=== PATIENT | female | born 1970 | race Caucasian/White ===

== ENCOUNTER 2024-01-06 14:10 | Emergency (ER) | payer OTHER, SELFPAY ==
--- NOTE | ~2024-01-06 | CT_ITS ---
EXAMINATION: CT ABDOMEN AND PELVIS WITHOUT CONTRAST CLINICAL INFORMATION: Left lower quadrant pain, flank pain, diarrhea, nausea COMPARISON: None available. TECHNIQUE: Multidetector volumetric imaging was performed from the superior aspect of the liver through the pubic symphysis. Sagittal and coronal reformatted images were obtained on the technologist's workstation. This CT examination was performed using dose optimization techniques as appropriate, variously including the following: *Automated exposure control *Adjustment of mA and/or kV according to patient size (this includes techniques or standardized protocols for targeted exams where dose is matched to indication/reason for exam; i.e. extremities or head) *Use of iterative reconstruction technique DLP: 647 mGy-cm FINDINGS: LUNG BASES: Unremarkable. ABDOMINAL AND PELVIC WALL: Unremarkable. LIVER AND BILIARY TREE: Hypoattenuating hepatic parenchyma compatible with hepatic steatosis. Liver is enlarged measuring 24.6 cm in span. GALLBLADDER: Unremarkable. PANCREAS: Unremarkable. SPLEEN: Unremarkable. ADRENAL GLANDS: Unremarkable. KIDNEYS AND URETERS: Unremarkable. GASTROINTESTINAL TRACT: Colonic diverticulosis with focal short segment wall thickening, inflammatory fat stranding and fascial thickening involving the descending colon. No perforation or abscess. Appendix is not identified however there are no findings to suggest appendicitis. VASCULAR: Unremarkable. LYMPH NODES/PERITONEUM: No lymphadenopathy. FREE FLUID: None. BLADDER: Unremarkable. PELVIC VISCERA: Unremarkable. OSSEOUS STRUCTURES: Unremarkable. CT/CT abdomen pelvis wo IV con IMPRESSION: 1. Colonic diverticulosis with focal short segment wall thickening, inflammatory fat stranding and fascial thickening involving the descending colon, compatible with acute diverticulitis. No perforation or abscess. 2. Hepatomegaly and hepatic steatosis.
[2024-01-06 14:32] VITALS: BP 129/89; PULSE 92; RESP 20; TEMP 37; O2SAT 97; BMI 31.0
--- NOTE | 2024-01-06 14:42 | ECG_ITS ---
Test Reason : ABD PAIN Blood Pressure : / mmHG Vent. Rate : 078 BPM Atrial Rate : 078 BPM P-R Int : 168 ms QRS Dur : 090 ms QT Int : 406 ms P-R-T Axes : 039 -03 056 degrees QTc Int : 462 ms Normal sinus rhythm Normal ECG No previous ECGs available Referred By: Anmol Mccollum Electronically Signed By:Shahram Nicholas
--- NOTE | 2024-01-06 14:44 | ED_ITS ---
HPI - General Adult General Chief complaint: Abdominal Pain Stated complaint: L flank pain Time Seen by Provider: 01/06/24 14:50 Source: patient Mode of arrival: ambulatory Limitations: no limitations History of Present Illness HPI narrative: Patient is a 53-year-old female with past medical history of primary immune deficiency, asthma, hypothyroidism, diverticulitis who presents emergency department for evaluation. She is visiting the area from [place]. She reports that yesterday she began developing left lateral abdominal pain radiating to the lower quadrant and a few episodes of diarrhea. She thought this was a bout of diverticulitis, she contacted her primary care provider who sent in a prescription for Augmentin to a local pharmacy. She has taken a total of 3 doses. Today she had mild diarrhea but she also has not been eating much. However she felt her pain was worsening, radiating to the mid/upper abdomen. She denies chest pain, shortness of breath, lower extremity pain redness or swelling. She does admit that she recently traveled by plane from [place]. Denies any personal history of DVT/PE/malignancy Related Data Previous Rx's ?Medication ?Instructions ?Recorded ondansetron 4 mg disintegrating 4 mg PO Q8H PRN nausea and 01/06/24 tablet vomiting #20 tabs Allergies Allergy/AdvReac Type Severity Reaction Status Date / Time acetaminophen [From Vicodin] Allergy Anaphylaxis Verified 01/06/24 14:38 ciprofloxacin [From Cipro] Allergy Anaphylaxis Verified 01/06/24 14:38 doxycycline Allergy Unknown Verified 01/06/24 14:38 hydrocodone [From Vicodin] Allergy Anaphylaxis Verified 01/06/24 14:38 iodine Allergy Anaphylaxis Verified 01/06/24 14:38 metronidazole [From Flagyl] Allergy Unknown Verified 01/06/24 14:38 sulfamethoxazole Allergy Anaphylaxis Verified 01/06/24 14:38 [From Septra] trimethoprim [From Septra] Allergy Anaphylaxis Verified 01/06/24 14:38 Review of Systems 2 Review of Systems: Yes all other systems are reviewed and are negative PMFSH Past Medical History Attestation statement: The following information was validated with the patient. Source: old records reviewed Medical History (Updated 01/06/24 @ 17:43 by Dale Carrillo) Hypothyroidism Primary immune deficiency disorder Surgical History (Updated 01/06/24 @ 15:27 by Leslie Collins RN) Hx of breast reduction, elective Social History Social History Alcohol intake: current Alcohol intake frequency: holidays/special occasions only Smoked in Last 30 Days: No Use of substances other than those prescribed or required for medical reasons: No Advance Directives: No Advance Directives Information Provided: No Do you have a plan to hurt others: No Plan Patient : No Physical Exam ED Vital Signs: Vital Signs - 24 hr 01/06/24 14:32 01/06/24 14:52 01/06/24 14:58 Temperature 98.6 F 98.3 F Pulse Rate 92 89 Respiratory Rate 20 16 Blood Pressure 129/89 141/84 H Pulse Oximetry 97 98 Oxygen Delivery Method Room Air Room Air 01/06/24 15:41 Temperature 98.2 F Pulse Rate 81 Respiratory Rate 16 Blood Pressure 112/75 Pulse Oximetry 97 Oxygen Delivery Method Room Air BMI result Body Mass Index 31.0 Appearance: Alert.?Oriented to person, place and time. No acute distress.?Normal affect. Eyes: Pupils equal, round and reactive to light.? ENT: Pharynx normal.?? Neck: Normal inspection.? Neck supple.?? CVS: Heart sounds normal. Normal heart rate and rhythm.? Pulses normal.?? Respiratory: No respiratory distress.? Lung sounds clear to auscultation bilaterally?? Abdomen: Soft left-sided abdominal pain upper and lower, left lateral abdomen. Normoactive bowel sounds. No pulsatile mass.?? Skin: Skin warm and dry.? Normal skin color.? Extremities: No lower extremity edema.? No calf ttp? Neuro: Moves all extremities spontaneously. Sensation intact bilaterally. CN II- XII intact. No focal neuro deficits. Ambulates with normal steady gait. Course Course Course Narrative: RME: DOne by Win Mccollum. 53-year-old female presents to ED for left upper flank abdominal pain. Patient has history of diverticulitis and thought she was having a flare-up so she called her primary care who gave her Augmentin. Patient took 1st dose yesterday. Patient states mild diarrhea. Patient states no left lower quadrant tenderness on palpation. Patient denies any chest pain or shortness of breath. Patient recently traveled from [place] by plane. On exam negative for leg swelling, calf pain, pitting edema. Negative for left lower quadrant pain on palpation. Positive for left upper quadrant pain. EKG labs troponin ordered. Reevaluation(s) Reevaluation #1: Signed out to my colleague, Aj ELDER pending CT abdomen and pelvis and re- evaluation Reevaluation #2: Patient's CT scan shows acute diverticulitis without complication. The patient is already on Augmentin that started 1-1/2 days ago, she will continue this regimen Time: 17:42 Medications Administered Discontinued Medications Generic Name Dose Route Start Last Admin Trade Name Freq PRN Reason Stop Dose Admin Sodium Chloride 1,000 mls @ 999 mls/hr 01/06/24 15:15 01/06/24 16:41 Ns IV 01/06/24 16:15 Infused .Q1H1M JAYE Infusion Ondansetron HCl 4 mg 01/06/24 15:05 01/06/24 15:20 Ondansetron Hcl 4 Mg/2 Ml Vial IVPUSH 01/06/24 15:06 Not Given ONCE ONE Ondansetron HCl 4 mg 01/06/24 17:49 01/06/24 17:52 Ondansetron Hcl 4 Mg/2 Ml Vial IVPUSH 01/06/24 17:50 4 mg ONCE ONE Administration Medical Decision Making Medical Decision Making [facility] Narrative: Patient is a 53-year-old female with past medical history of primary immune deficiency hypogammaglobulinemia, asthma, hypothyroidism, diverticulitis presenting for left abdominal pain, nausea, diarrhea as per HPI. Overall she appears well, nontoxic, afebrile and is without tachycardia. She declines pain control at this time. She was offered Zofran for nausea which she also declines. Will obtain CBC to evaluate for leukocytosis/ anemia, CMP and lipase to evaluate for abnormal electrolytes /abnormal renal function/ abnormal hepatic/biliary function, EKG and troponin to evaluate for ischemia/ACS. CT of the abdomen pelvis to evaluate for diverticulitis he possible complication, ureteral calculi, hydronephrosis, pyelonephritis, Urinalysis. Wells negative, unlikely pulmonary embolism, no respiratory distress. Differential Diagnosis Differential Diagnoses: The differential diagnosis associated with the presentation includes (See narrative above) Admission/Observation Consideration of admission/observation: Escalation of care including admission/observation considered Lab Data [facility] Lab Attestation statement: I reviewed the patient's lab results. CBC reveals a mild leukocytosis, no anemia, thrombocytopenia. No electrolyte derangement. No HIRAL. Mildly elevated LFT please, who be secondary to hepatic steatosis, suspect less likely to be etiology for left-sided pain. Lipase is within normal range. Urinalysis with leukocyte esterase but no urine bacteria, do not suspect UTI. 01/06/24 15:03 01/06/24 15:03 Labs: Lab Results 01/06/24 Range/Units 15:03 WBC 11.1 H (4.8-10.8) X10*3/uL RBC 4.68 (4.20-5.50) X10*6/uL Hgb 13.8 (12.0-16.0) g/dl Hct 39.5 (37.0-47.0) % MCV 84.4 (80.0-98.0) fL MCH 29.5 (27.0-33.0) pg MCHC 34.9 (31.0-35.0) g/dl RDW 13.6 (11.0-16.0) % Plt Count 313 (160-400) X10*3/uL MPV 10.2 (9.4-12.3) fL Immature Gran % (Auto) 0.4 (0.0-0.4) % Neut % (Auto) 66.8 (45-73) % Lymph % (Auto) 26.4 (20-40) % Mercer % (Auto) 5.2 (2-11) % Eos % (Auto) 0.8 (0-4) % Baso % (Auto) 0.4 (0-2) % Lymph # (Auto) 2.9 (1.2-4.9) X10*3/uL Mercer # (Auto) 0.6 (0.1-1.2) X10*3/uL Eos # (Auto) 0.1 (0.0-0.4) X10*3/uL Baso # (Auto) 0.0 (0.0-0.2) X10*3/uL Abs Immat Gran (auto) 0.05 H (0.00-0.03) X10*3/uL Absolute Neuts (auto) 7.4 (2.0-8.3) x10*3/uL Absolute Nucleated RBC 0.000 (0.0-0.012) X10*3/uL Nucleated RBC % (auto) 0.0 (0.0-0.2) /100WBC PT 12.0 (11.1-13.3) SEC INR 1.0 (0.9-1.1) APTT 30.3 (26.0-36.8) SEC Sodium 140 (135-145) mmol/L Potassium 3.8 (3.3-5.1) mmol/L Chloride 106 (96-108) mmol/L Carbon Dioxide 23 (22-29) mmol/L Anion Gap 15 (12-20) BUN 9 (9-16) mg/dL Creatinine 0.71 (0.5-1.4) mg/dL Estim Creat Clear Calc 100.6 Estimated GFR > 60 Random Glucose 129 H (60-115) mg/dL Calcium 10.0 (8.4-10.2) mg/dL Total Bilirubin 1.1 H (0.0-1.0) mg/dL AST 35 H (5-31) U/L ALT 59 H (0-31) U/L Alkaline Phosphatase 123 H (39-117) U/L Troponin I High Sens < 2.7 (<3.5-17.0) ng/L Total Protein 7.7 (6.5-8.0) g/dL Albumin 4.6 (3.5-5.0) g/dL Lipase 22 (8-78) U/L Beta HCG, Quant < 2 mIU/mL Urine Color Yellow Urine Appearance Clear Urine pH 6.0 (5.0-9.0) Ur Specific [place] 1.020 (1.005-1.025) Urine Protein Negative (Neg-Trace) mg/dL Urine Glucose (UA) Negative (Negative) mg/dL Urine Ketones Trace (Negative) mg/dL Urine Blood Negative (Negative) Urine Nitrite Negative (Negative) Ur Leukocyte Esterase Small (1+) H (Negative) Urine RBC 0-2 (0-2) /HPF Urine WBC 11-20 H (0-5) /HPF Ur Squamous Epith Cells 3-5 (0-2) /HPF Urine Bacteria None Seen (None Seen) Hyaline Casts 0-2 (0-2) /LPF Independent Interpretation I performed an independent interpretation of an: EKG Interpretation: Rate: 78 Rhythm:? Normal sinus rhythm Normal P waves.? Normal HOMER.?? Normal QRS complex.?? ST T wave :??No ST elevation, no ST depression qTC: 462 prior studies:? None available for review The study has been interpreted contemporaneously by me. Radiology Impression Discussion of test interpretation with radiology: I have reviewed the radiologist's reading. Radiologist Impression: CT/CT abdomen pelvis wo IV con IMPRESSION: 1. Colonic diverticulosis with focal short segment wall thickening, inflammatory fat stranding and fascial thickening involving the descending colon, compatible with acute diverticulitis. No perforation or abscess. 2. Hepatomegaly and hepatic steatosis. Independent Historian Clinical information obtained from an independent historian. History obtained from or confirmed by: Other (Daughter) Discharge Plan Discharge Clinical Impression: Abdominal pain, Diverticulitis Patient Disposition: Home, Self-Care Instructions: Diverticulitis (ED), Diverticulitis Diet (ED) Additional Instructions: Your CT scan shows uncomplicated diverticulitis, continue the Augmentin. I recommend a liquid diet for the next 2 days while your pain improves Follow-up with your primary doctor, return for new or worsening symptoms Prescriptions: New ondansetron 4 mg tablet,disintegrating 4 mg PO Q8H PRN (Reason: nausea and vomiting) Qty: 20 0RF Print Language: Ukrainian
[2024-01-06 14:52] VITALS: BP 141/84; PULSE 89; RESP 16; O2SAT 98
[2024-01-06 14:58] VITALS: TEMP 36.8
[2024-01-06 15:12] LABS: Basophils Percent Auto 0.4 % (0-2); Eosinophils Absolute Auto 0.1 X10*3/uL (0.0-0.4); Eosinophils Percent Auto 0.8 % (0-4); Hematocrit 39.5 % (37.0-47.0); Hemoglobin 13.8 g/dl (12.0-16.0); Imm Gran Abs Auto 0.05 X10*3/uL (0.00-0.03); Imm Gran Pct Auto 0.4 % (0.0-0.4); Lymphocytes Absolute Auto 2.9 X10*3/uL (1.2-4.9); Lymphocytes Percent Auto 26.4 % (20-40); MANUAL DIFF FLAG NO; Mean Corpuscular HGB Conc 34.9 g/dl (31.0-35.0); Mean Corpuscular Hemoglobin 29.5 pg (27.0-33.0); Mean Corpuscular Volume 84.4 fL (80.0-98.0); Mean Platelet Volume 10.2 fL (9.4-12.3); Monocytes Absolute Auto 0.6 X10*3/uL (0.1-1.2); Monocytes Percent Auto 5.2 % (2-11); Neutrophils Absolute Auto 7.4 x10*3/uL (2.0-8.3); Neutrophils Percent Auto 66.8 % (45-73); Platelet Count 313 X10*3/uL (160-400); Red Blood Count 4.68 X10*6/uL (4.20-5.50); Red Cell Distribution Width 13.6 % (11.0-16.0); White Blood Count 11.1 X10*3/uL (4.8-10.8)
[2024-01-06 15:13] LABS: Appearance Urine Clear; Color Urine Yellow; Glucose Urine UA Negative (Negative); Leukocyte Esterase Urine Small (1+) (Negative); Nitrite Urine Negative (Negative); UMIC TRIGGER UACC YES; Urine Blood Negative (Negative); Urine Ketones Trace mg/dL (Negative); Urine Protein Negative (Neg-Trace)
[2024-01-06 15:19] LABS: Bacteria Urine None Seen (None Seen); Hyaline Casts Urine 0-2 /LPF (0-2); RBC Urine 0-2 /HPF (0-2); UACC Culture Trigger YES
[2024-01-06] MEDS: 0.9 % Sodium Chloride 1,000 ML 999 ML IV (15:19)
[2024-01-06 15:21] LABS: Partial Thromboplastin Time 30.3 SEC (26.0-36.8)
[2024-01-06 15:41] VITALS: BP 112/75; PULSE 81; RESP 16; TEMP 36.8; O2SAT 97
--- NOTE | 2024-01-06 15:42 | MHC.EDTECH ---
This pct assumed care of patient at 1500 ,vitals taken and ekg done and was read by Provider ,Call lozano within Patient reach .
[2024-01-06 15:43] LABS: Alanine Aminotransferase 59 U/L (0-31); Albumin Level 4.6 g/dL (3.5-5.0); Alkaline Phosphatase 123 U/L (39-117); Anion Gap 15 (12-20); Aspartate Amino Transferase 35 U/L (5-31); Bilirubin Total 1.1 mg/dL (0.0-1.0); Blood Urea Nitrogen 9 mg/dL (9-16); Carbon Dioxide 23 mmol/L (22-29); Chloride 106 mmol/L (96-108); Creatinine Clr Calc Pharmacy 100.6; Estimated Glomerular Filt Rate > 60; Glucose Random 129 mg/dL (60-115); Lipase 22 U/L (8-78); Potassium 3.8 mmol/L (3.3-5.1); Sodium 140 mmol/L (135-145); Total Protein 7.7 g/dL (6.5-8.0)
[2024-01-06 15:48] LABS: HCG Quantitative < 2 mIU/mL; Troponin-I High Sensitivity < 2.7 ng/L (<3.5-17.0)
--- OUTSIDE RECORDS SUMMARY | 2024-01-06 15:57 | XMS_ITS | Patient Health Record ---
Author Organization [facility] Address [address] [place] [address] Care Team Providers Care Rn Mds Name Role Phone [facility] Primary Care Provider Unavail able JORGITO RODRIGUEZ M.D., YESENIA Vogt JORGITO RODRIGUEZ M.D., YESENIA Unavailable Unavaila ble Allergies Allergen (clinical drug ingredient) Drug/Non Drug Allergy documented on EMR Reaction Allergy Type Onset Date Status sulfamethoxazole / trimethoprim Bactrim DS Unknown Drug Allergy Active meperidine Demerol hives Drug Allergy Active acetaminophen / hydrocodone HYDROcodone-Acetami nophen anaphylaxis Drug Allergy Active Iodine anaphylaxis Drug Allergy Activ e Levaquin dizziness Drug Allergy Active ceftriaxone cefTRIAXone rash Drug Allergy Act june cefuroxime Cefuroxime rash Drug Allergy Activ e moxifloxacin Moxifloxacin hives Drug Allergy A ctive Reason For Referral No Information Medications Medication SIG (Take, Route, Frequency, Duration) Notes Start Date End Date Status Tylenol 325 MG 1 cap(s) orally 3 times a day prn Active Magnesium Gluconate 250 MG 1 tab(s) orally 2 times a day for 30 day(s) Active Melatonin 2.5 MG 1 cap(s) orally once a day (at bedtime) Active Vitamin D3 10 MCG (400 UNIT) as directed orally once a day for 30 day(s) Active Levalbuterol HCl 0.31 MG/3 ML 3 ML BY NEBULIZER 3 TIMES A DAY for 30 DAY(S) PRN Active Levothyroxine Sodium 125 MCG 1 tab(s) orally once a day for 30 day(s) Active Singulair 10 MG 1 tab(s) orally once a day for 30 day(s) Active Hizentra 20% DIRECTED SUBCUTANEOUSLY ONCE A WEEK for 4 WEEK(S) *Please review and pick correct strength-formula tion from [employer] options. If intended option is not shown, discontinue and re-order from Quick Search* Active Pascale 5 MG 1 TAB(S) ORALLY ONCE A DAY PRN Active clonazePAM 1 MG 1 tab(s) orally 3 times a day for 30 day(s) PRN Active Ryaltris 665-25 MCG/ACT 2 puffs in each nostril Nasally Twice a day Not-Taking L-Theanine Active Budesonide 1 MG/2ML 2 mL by nebulizer once a day for 30 day(s) Active NexIUM 40 MG 1 cap(s) orally once a day for 30 day(s) Active Zinc *Please review and pick correct strength-formula tion from [employer] options. If intended option is not shown, discontinue and re-order from Quick Search* Active Social History Tobacco Use: Social History Observation Description Date Details (start date - stop date) Former Smoker NA - NA Tobacco Use- Question Answer Notes Patient is a Former Smoker Time since last smoked > 10 years Problems Problem Type SNOMED Code ICD Code Onset Dates Problem Status W/U Status Risk Notes Problem Allergic rhinitis caused by pollen (17360954) Allergic rhinitis due to pollen (J30.1) Active confirmed Problem Dysphagia (59519744) Dysphagia (R13.10) Active confirmed Problem Gastric reflux (491926863) Gastric reflux (K21.9) Active confirmed Problem [id number] Mild reactive airways disease, unspecified whether persistent (J45.909) Active confirmed Vital Signs Temperature 97.1 degrees Fahrenheit 02/14/2023 Blood pressure diastolic 82 mm Hg 02/14/2023 Weight-kg 84.37 kg 02/14/2023 Height 66 in 02/14/2023 Blood pressure systolic 124 mm Hg 02/14/2023 Weight 186 lbs 02/14/2023 BMI 30.02 02/14/2023 Encounters Encounter Location Date Provider Diagnosis [facility] [address] [facility] [place] [address] [place] [address] 02/14/2023 YESENIA BULL III Allergic rhinitis due to pollen J30.1 and Mild reactive airways disease, unspecified whether persistent J45.909 Assessments Encounter Date Diagnosis (ICD Code) Assessment Notes Treatment Notes Treatment Clinical Notes 02/14/2023 Allergic rhinitis due to pollen (ICD-10 - J30.1) Continue meds 02/14/2023 Mild reactive airways disease, unspecified whether persistent (ICD-10 - J45.909) No thrush ok to resume steroids Plan Of Treatment No Information Insurance Providers Payer Name Payer Address Payer Phone Subscriber Number Group Number Insured Name Patient Relationship to Insured Coverage Start Date Coverage End Date [employer] [address] [place] [address] [id number] LENIN DORSEY Self - patient is the insured Medical (General) History Medical History History ICD Code Esophageal reflux eczema asthma Primary Immunodeficiency syndrome Surgical History Surgery Date(Month/Year)
--- OUTSIDE RECORDS SUMMARY | 2024-01-06 15:57 | XMS_ITS ---
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 Name Role Phone [facility] SYLVESTER [facility] Primary Care Provider Unavail able JORGITO RODRIGUEZ M.D., YESENIA Unavailable JORGITO RODRIGUEZ M.D., YESENIA Unavailable Unavaila ble [...] moxifloxacin Moxifloxacin hives Drug Allergy A ctive REASON FOR VISIT Difficulty breathing Medications Medication SIG (Take, Route, Frequency, Duration) Notes Start Date End Date Status Magnesium Gluconate 250 MG 1 tab(s) orally 2 times a day for 30 day(s) Active Vitamin D3 10 MCG (400 UNIT) as directed orally once a day for 30 day(s) Active Levothyroxine Sodium 125 MCG 1 tab(s) orally once a day for 30 day(s) Active Singulair 10 MG 1 tab(s) orally once a day for 30 day(s) Active Zinc *Please review and pick correct strength-formula tion from [employer] options. If intended option is not shown, discontinue and re-order from Quick Search* Active Tylenol 325 MG 1 cap(s) orally 3 times a day prn Active Pascale 5 MG 1 TAB(S) ORALLY ONCE A DAY PRN Active Ryaltris 665-25 MCG/ACT 2 puffs in each nostril Nasally Twice a day Not-Taking L-Theanine Active NexIUM 40 MG 1 cap(s) orally once a day for 30 day(s) Active Melatonin 2.5 MG 1 cap(s) orally once a day (at bedtime) Active Levalbuterol HCl 0.31 MG/3 ML 3 ML BY NEBULIZER 3 TIMES A DAY for 30 DAY(S) PRN Active Hizentra 20% DIRECTED SUBCUTANEOUSLY ONCE A WEEK for 4 WEEK(S) *Please review and pick correct strength-formula tion from [employer] options. If intended option is not shown, discontinue and re-order from Quick Search* Active clonazePAM 1 MG 1 tab(s) orally 3 times a day for 30 day(s) PRN Active Budesonide 1 MG/2ML 2 mL by nebulizer once a day for 30 day(s) Active Social History Tobacco Use: Social History Observation Description Date Details (start date - stop date) Former Smoker NA - NA Tobacco Use- Question Answer Notes Patient is a Former Smoker Time since last smoked > 10 years Problems Problem Type SNOMED Code ICD Code Onset Dates Problem Status W/U Status Risk Notes Problem Allergic rhinitis caused by pollen (56153283) Allergic rhinitis due to pollen (J30.1) Active confirmed Problem [id number] Mild reactive airways disease, unspecified whether persistent (J45.909) Active confirmed Vital Signs Height 66 in 02/14/2023 Weight-kg 84.37 kg 02/14/2023 Weight 186 lbs 02/14/2023 Temperature 97.1 degrees Fahrenheit 02/15/20 23 Blood pressure systolic 124 mm Hg 02/15/20 23 Blood pressure diastolic 82 mm Hg 023 BMI 30.02 02/14/2023 Encounters Encounter Location Date Provider Diagnosis [facility] [address] [facility] [address] [place] [address] 02/14/2023 YESENIA HAWKINS III Allergic rhinitis due to pollen J30.1 and Mild reactive airways disease, unspecified whether persistent J45.909 Assessments Encounter Date Diagnosis (ICD Code) Assessment Notes Treatment Notes Treatment Clinical Notes 02/14/2023 Allergic rhinitis due to pollen (ICD-10 - J30.1) Continue meds 02/14/2023 Mild reactive airways disease, unspecified whether persistent (ICD-10 - J45.909) No thrush ok to resume steroids Plan Of Treatment Treatment Notes Assessment Notes Allergic rhinitis due to pollen Continue meds Mild reactive airways diseas e, unspecified whether persistent No thrush ok to resume steroids Next Appt Details Follow Up: prn, Reason: Progress Notes * JAMES DORSEYOB:1970 ( 52 yo F)Acc No.[id number]:02/14/2023 Patient:?LENIN DORSEY Provider:?Yesenia Hawkins III, M.D. :1970???Age:52 Y???Sex:Female D ate:02/14/2023 Address:[address], [facility] Pcp:WOODY WILHELM MD Subjective: * Chief Complaints: * ???Difficulty breathing * HPI: ???Difficulty Swallowing:?Quality?Pt is coughing up thick white stuff.?Severity?5/5, severe.?Duration?Jan 11 she had COVID-19. Pt got a little better. Pt is using a nebulizer and has thresh in her mouth and wanted to make sure she does not have it down here throat.?Modifying factors?Pt states that she has some difficulty breathing. Pt recently had COVID- 19. Pt feels like she is drowning..?Assoc signs /symptoms?Pt has some concerns about the congestion in her chest.?.? Nurse Int : OE. * ROS:?CONSTITUTIONAL:?no?Daytime Sleepiness:.?no?Snoring.?no?Unexplained Weight Change.?no?Unexplained Fever:.?no?Unexplained Weight Gain:.?no?Unexplained Weight Loss:.?EAR:?no?Ear Drainage:.?no?Ear Fullness:.?no?Ear Pain:.?no?Hearing Loss:.?no?Itchy Ear:.?no?Ringing in Ears:.?NOSE:?no?Bleeding:.?no?Loss of Smell:.?no?Itchy Nose:.?no?Nasal Congestion:.?no?Drainage:.?no?Sneezing:.?no?Trauma:.?THROAT:?no?Difficulty Swallowing:.?no?Frequent Throat Clearing:.?no?Hoarseness:.?no?Itchy Throat:.?no?Sore Throat:.?no?Voice Change:.?SINUS:?no?Sinus Pain and/or Pressure:.?MOUTH:?no?Mouth Pain:.?no?[place] in Mouth or Ear:.?no?Sores in Mouth and/or Tongue:.?EYES:?no?Blurred Vision:.?no?Eye Drainage:.?no?Itchy Eyes:.?no?Sensitivity to Light:.?CARDIOVASCULAR:?no?Chest Pain:.?no?Faintness or Blackouts:.?no?Irregular Heartbeat:.?no?Swelling of Limbs:.?RESPIRATORY:?no?Cough:.?no?Shortness of Breath:.?no?Snoring:.?no?Wheezing:.?MUSCULOSKELETAL:?no?Back Pain:.?no?Neck Swelling or Lumps.?no?Joint Pain/Stiffness:.?no?Muscle Weakness:.?GENITOURINARY:?no?Blood in Urine:.?no?Excessive Urination at Night:.?no?Pain when Urinating:.?ENDOCRINE:?no?Excessive Appetite:.?no?Excessive Sweating:.?no?Heat/Cold Intolerance:.?no?Loss of Hair:.?NEUROLOGIC:?no?Headache:.?no?Seizures:.?no?Unsteady or Poor Balance:.?GASTROINTESTINAL:?no?Abdominal Pain:.?no?Blood in Stool:.?no?Constipation:.?no?Diarrhea:.?no?Heartburn and/or Vomiting:.?PSYCHIATRIC:?no?Anxiety:.?no?Depression:.?no?Difficulty Sleeping:.?no?Memory Loss:.?ALLERGY/ IMMUNOLOGIC:?no?Food Intolerance:.?no?Itchy Watery Burning Eyes:.?DERMATOLOGY:?no?Eczema:.?no?Hives and/or Rash:.?no?New Skin Lesions:.?no?Pigmentation Changes:.?HEMATOLOGY/LYMPH:?no?Easy Bruising and/or Bleeding:.?no?Enlarged Lymph Nodes:.?All pertinent systems reviewed. Physician signature below indicates that the physician has reviewed: CC, HPI, PSFH & ROS. * Medical History:? * Surgical History:?Denies Pas t Surgical History * Hospitalization/Major Diagno stic Procedure:?Denies Past Hospitalization * Family History:?No Family Hi story documented..? * Social History:?Alcohol Use- : No. Recreational Drug Use-: No. Caffeine-: 1-2 cups daily. Oral Tobacco-: Never used. Tobacco Use-?Patient is a?Former Smoker,?Time since last smoked?> 10 years.?Living Arrangements-: With Family. * Medications:?TakingL-Theanin e Pascale 5 MG DELAYED RELEASE TABLET 1 TAB(S) ORALLY ONCE A DAY , Notes to Pharmacist: PRNSingulair 10 MG Tablet 1 tab(s) orally once a day Levothyroxine Sodium 125 MCG Tablet 1 tab(s) orally once a day Vitamin D3 10 MCG (400 UNIT) Tablet as directed orally once a day Magnesium Gluconate 250 MG Tablet 1 tab(s) orally 2 times a day Zinc TABLET , Notes to Pharmacist: *Please review and pick correct strength-formulation from [employer] options. If intended option is not shown, discontinue and re-order from Quick Search*Budesonide 1 MG/2ML Suspension 2 mL by nebulizer once a day clonazePAM 1 MG Tablet 1 tab(s) orally 3 times a day , Notes to Pharmacist: PRNHizentra 20% SOLUTION DIRECTED SUBCUTANEOUSLY ONCE A WEEK , Notes to Pharmacist: *Please review and pick correct strength-formulation from [employer] options. If intended option is not shown, discontinue and re-order from Quick Search*Levalbuterol HCl 0.31 MG/3 ML SOLUTION 3 ML BY NEBULIZER 3 TIMES A DAY , Notes to Pharmacist: PRNMelatonin 2.5 MG Tablet Chewable 1 cap(s) orally once a day (at bedtime) Tylenol 325 MG Capsule 1 cap(s) orally 3 times a day , Notes to Pharmacist: prnNexIUM 40 MG Capsule Delayed Release 1 cap(s) orally once a day Taking L- Theanine Taking Pascale 5 MG DELAYED RELEASE TABLET 1 TAB(S) ORALLY ONCE A DAY , Notes to Pharmacist: PRNTaking Singulair 10 MG Tablet 1 tab(s) orally once a day Taking Levothyroxine Sodium 125 MCG Tablet 1 tab(s) orally once a day Taking Vitamin D3 10 MCG (400 UNIT) Tablet as directed orally once a day Taking Magnesium Gluconate 250 MG Tablet 1 tab(s) orally 2 times a day Taking Zinc TABLET , Notes to Pharmacist: *Please review and pick correct strength-formulation from [employer] options. If intended option is not shown, discontinue and re-order from Quick Search*Taking Budesonide 1 MG/2ML Suspension 2 mL by nebulizer once a day Taking clonazePAM 1 MG Tablet 1 tab(s) orally 3 times a day , Notes to Pharmacist: PRNTaking Hizentra 20% SOLUTION DIRECTED SUBCUTANEOUSLY ONCE A WEEK , Notes to Pharmacist: *Please review and pick correct strength-formulation from [employer] options. If intended option is not shown, discontinue and re-order from Quick Search*Taking Levalbuterol HCl 0.31 MG/3 ML SOLUTION 3 ML BY NEBULIZER 3 TIMES A DAY , Notes to Pharmacist: PRNTaking Melatonin 2.5 MG Tablet Chewable 1 cap(s) orally once a day (at bedtime) Taking Tylenol 325 MG Capsule 1 cap(s) orally 3 times a day , Notes to Pharmacist: prnTaking NexIUM 40 MG Capsule Delayed Release 1 cap(s) orally once a day Not- TakingRyaltris 665-25 MCG/ACT Suspension 2 puffs in each nostril Nasally Twice a day Medication List reviewed and reconciled with the patientNot-Taking Ryaltris 665-25 MCG/ACT Suspension 2 puffs in each nostril Nasally Twice a day Medication List reviewed and reconciled with the patient * Allergies:?HYDROcodone-Aceta minophen: anaphylaxisIodine: anaphylaxisDemerol: hivesLevaquin: dizzinessCefuroxime: rashcefTRIAXone: rashMoxifloxacin: hivesBactrim DSno[Allergies Verified] Objective: * Vitals:?Ht: 66, Wt: 84.37 kg , Wt - lbs: 186 lbs, Temp: 97.1, BP:124/82, Pulse: 90, BMI:30.02. * Examination: ???Normal ENT Exam: ?General Appearance:?Able to communicate normally, NAD, pleasant.?Head/Face:?No Pathologic scars, lesions, or masses, normal salivary glands, good facial strength.?Ear:?EACs, TMs intact and mobile, Hearing Grossly Normal, No external Deformities.?Oral Cavity?Lips, teeth, gums normal,Oropharynx & Posterior pharynx normal..?Neck:?no mass, no adenopathy, no asymmetry, trachea midline, Thyroid normal.?Respiratory:?Inspection of chest is normal. Unlabored breathing..?Cardiac:?Peripheral Vasc No C,C,E.?Lymphatic:?No palpable lymph nodes.?Neurologic:?AAO x 3, Normal mood & affect.?Nasal findings: ?Nasal dorsum:?midline.?Septum:?midline.?Inferior turbinates:?pale, edematous.?Secretions:?clear rhinorrhea.?Nasal Endoscopy: ?Indications/Procedure Note :?Nasal endoscopy was performed. Verbal consent was obtained and topical anesthesia was applied. Indication for procedure: Pathology of the osteomeatal complex area that cannot be visualized by speculum exam.?Nasal dorsum :?midline.?Septum :?equal airway bilaterally.?Inferior turbinates :?normal. Middle turbinates :?normal.?Superior turbinates:?obscured by middle turbinates.?Middle meatus :?clear.?Superior meatus:?obscured by middle turbinates.?Spheno-ethmoid recess:?obscured by middle turbinates.?Nasal Cavity :?Clear, bilaterally. Nasopharynx:?normal.?Flexible Laryngoscopy: ?Indications/ procedure:?Gag reflex prevented mirror examination, Scope was accomplished using flexible laryngoscope, Topical Xylocaine was used, Nasopharynx, hypopharynx, and larynx were examined and the results recorded in the exam.?Nasopharynx:?normal.?Base of Tongue:?normal.?Epiglottis?normal.?Post-cricoid:?normal.?Arytenoid:?normal.?AE Fold:?normal.?False Cords:?normal.?Pyriform Sinus:?normal.?Vocal Cord:?normal.?Subglottis:?normal.? Assessment: * Assessment: 1.?Allergic rhinitis due to pollen - J30.1 (Primary)?2.?Mild reactive airways disease, unspecified whether persistent - J45.909? Plan: * Treatment: 2.?Mild reactive airways dis ease, unspecified whether persistent? Notes: No thrush ok to resume steroids?? * Procedure Codes:?96576 Nasal endoscopy * Follow Up:?prn * Images: Billing Information: * Visit Code:? 98970 OV EST PT. * Procedure Codes:? 00406 Nasal endoscopy. * Sign off status: Completed true * Provider:?Yesenia Hawkins III, M.D. Da te:?02/14/2023 Generated for Griceli kerry/Neli/eTransmitting on:?01/06/2024 02:57 PM CDT History and Physical Notes * HPI (History of Present Illness) Category Sub-Category Detail Notes Difficulty Swallowing Quality Pt is coug dylan up thick white stuff Severity 5/5, severe Duration Jan 11 she had COVI D-19. Pt got a little better. Pt is using a nebulizer and has thresh in her mouth and wanted to make sure she does not have it down here throat Modifying factors Pt states that she h as some difficulty breathing. Pt recently had COVID-19. Pt feels like she is drowning. Assoc signs /symptoms Pt has some concer ns about the congestion in her chest. Examination Category Sub-Category Detail Notes ENT Exam General Appearance: Able to comm unicate normally, NAD, pleasant Head/Face: No Pathologic scars, lesions, or masses, normal salivary glands, good facial strength Ear: EACs, TMs intact and mobile, Hearing Grossly Normal, No external Deformities Oral Cavity Lips, teeth, gums no rmal,Oropharynx & Posterior pharynx normal. Neurologic: AAO x 3, Normal mood & affect Neck: no mass, no adenopat hy, no asymmetry, trachea midline, Thyroid normal Respiratory: Inspection of chest is normal. Unlabored breathing. Cardiac: Peripheral Vasc No C ,C,E Lymphatic: No palpable lymph no frances Nasal findings Septum: midline Inferior turbinates: pale, edematous Secretions: clear rhinorrhea Nasal dorsum: midline Flexible Laryngoscopy Indications/ procedure: Ga g reflex prevented mirror examination, Scope was accomplished using flexible laryngoscope, Topical Xylocaine was used, Nasopharynx, hypopharynx, and larynx were examined and the results recorded in the exam Nasopharynx: normal Base of Tongue: normal Epiglottis normal Arytenoid: normal AE Fold: normal False Cords: normal Pyriform Sinus: normal Vocal Cord: normal Subglottis: normal Post-cricoid: normal Nasal Endoscopy Indications/Procedure Note : Daron al endoscopy was performed. Verbal consent was obtained and topical anesthesia was applied. Indication for procedure: Pathology of the osteomeatal complex area that cannot be visualized by speculum exam Nasal dorsum : midline Septum : equal airway bilater ally Inferior turbinates : normal Middle meatus : clear Nasal Cavity : Clear, bilaterally Middle turbinates : normal Nasopharynx: normal Superior turbinates: obscured by middle turbinates Superior meatus: obscured by middle t urbinates Spheno-ethmoid recess: obscured by middl e turbinates
--- OUTSIDE RECORDS SUMMARY | 2024-01-06 15:57 | XMS_ITS ---
Author Organization [facility] Address [address] [place] [address] Care Team Providers Care Cell Phone Repair Technician Name Role Phone CHOCO SYLVESTER [facility] Primary Care Provider Unavail able JORGITO RODRIGUEZ M.D., YESENIA Unavailable [phone] JORGITO RODRIGUEZ M.D., YESENIA Unavailable Unavaila ble [...] Drug Allergy A ctive REASON FOR VISIT Ear Pain Medications Medication SIG (Take, Route, Frequency, Duration) Notes Start Date End Date Status clonazePAM 1 MG 1 tab(s) orally 3 times a day for 30 day(s) PRN Active Budesonide 1 MG/2ML 2 mL by nebulizer once a day for 30 day(s) Active Zinc *Please review and pick correct strength-formulat ion from Medispan options. If intended option is not shown, discontinue and re-order from Quick Search* Active Hizentra 20% DIRECTED SUBCUTANEOUSLY ONCE A WEEK for 4 WEEK(S) *Please review and pick correct strength-formulat ion from Medispan options. If intended option is not shown, discontinue and re-order from Quick Search* Active Levalbuterol HCl 0.31 MG/3 ML 3 ML BY NEBULIZER 3 TIMES A DAY for 30 DAY(S) PRN Active Singulair 10 MG 1 tab(s) orally once a day for 30 day(s) Active Pascale 5 MG 1 TAB(S) ORALLY ONCE A DAY PRN Active Levothyroxine Sodium 125 MCG 1 tab(s) orally once a day for 30 day(s) Active Magnesium Gluconate 250 MG 1 tab(s) orally 2 times a day for 30 day(s) Active Vitamin D3 10 MCG (400 UNIT) as directed orally once a day for 30 day(s) Active Ryaltris 665-25 MCG/ACT 2 puffs in each nostril Nasally Twice a day Active NexIUM 40 MG 1 cap(s) orally once a day for 30 day(s) Active Tylenol 325 MG 1 cap(s) orally 3 times a day Active Melatonin 2.5 MG 1 cap(s) orally once a day (at bedtime) Active Social History Tobacco Use: Social History Observation Description Date Details (start date - stop date) Former Smoker NA - NA Tobacco Use- Question Answer Notes Patient is a Former Smoker Time since last smoked > 10 years Vital Signs Height 66 in 07/19/2022 Weight-kg 81.19 kg 07/19/2022 Weight 179 lbs 07/19/2022 Temperature 97.7 degrees Fahrenheit 07/19/19 23 Blood pressure systolic 156 mm Hg 07/19/19 23 Blood pressure diastolic 92 mm Hg 023 BMI 28.89 07/19/2022 Encounters Encounter Location Date Provider Diagnosis [facility] [address] [place] [address] 07/19/2022 YESENIA HAWKINS III Eustachian Tube Dysfunction bilateral H69.83 Assessments Encounter Date Diagnosis (ICD Code) Assessment Notes Treatment Notes Treatment Clinical Notes 07/19/2022 Eustachian Tube Dysfunction bilateral (ICD-10 - H69.83) Afrin/sudafed 1 hour before flight if ears still bothersome No fluid today Continue nasal steroid/antihista mine spray Plan Of Treatment Treatment Notes Assessment Notes Eustachian Tube Dysfunction bilateral Afrin/sudafed 1 hour before flight if ears still bothersome No fluid today Continue nasal steroid/antihistamine spray Next Appt Details Follow Up: prn, Reason: Progress Notes * JAMES DORSEYOB:1970 ( 52 yo F)Acc No.[id number]:07/19/2022 Patient:LENIN CHUN Provider:?Yesenia Hawkins III, M.D. :1970???Age:52 Y???Sex:Female D ate:07/19/2022 Address:[facility] [address] Pcp:WOODY WILHELM MD Subjective: * Chief Complaints: * ???Ear Pain * HPI: ???Ear Pain:?Location:?bilateral.?Quality:?aching.?Duration:?About a week now.?Timing:?continuous.?Modifying factors:?Pt states she went to her allergies and she told her her ear are filled with fluid.?Assoc signs /symptoms: ear fullness, ear pain, , tinnitus in the right ear, tonsil stones.? History taken by: NR COSTUME MAKER. * ROS:?CONSTITUTIONAL:?no?Daytime Sleepiness:.?no?Snoring.?no?Unexplained Weight Change.?no?Unexplained Fever:.?no?Unexplained Weight Gain:.?no?Unexplained Weight Loss:.?EAR:?no?Ear Drainage:.?Ear Fullness:?YES.?Ear Pain:?YES.?no?Hearing Loss:.?no?Itchy Ear:.?Ringing in Ears:?YES.?NOSE:?no?Bleeding:.?no?Loss of Smell:.?no?Itchy Nose:.?no?Nasal Congestion:.?no?Drainage:.?no?Sneezing:.?no?Trauma:.?THROAT:?no?Difficulty Swallowing:.?no?Frequent Throat Clearing:.?no?Hoarseness:.?no?Itchy [...] & ROS. * Medical History:? * Surgical History:?No Surgica l History documented. * Hospitalization/Major Diagno stic Procedure:?No Hospitalization History. * Family History:?No Family Hi story documented..? * Social History:?Alcohol Use- : No. Recreational Drug Use-: No. Caffeine-: 1-2 cups daily. Oral Tobacco-: Never used. Tobacco Use-?Patient is a?Former Smoker,?Time since last smoked?> 10 years.?Living Arrangements-: With Family. * Medications:?TakingRyaltris 665-25 MCG/ACT Suspension 2 puffs in each nostril Nasally Twice a dayRayos 5 MG DELAYED RELEASE TABLET 1 TAB(S) ORALLY ONCE A DAY, Notes: PRNSingulair 10 MG Tablet 1 tab(s) orally once a dayLevothyroxine Sodium 125 MCG Tablet 1 tab(s) orally once a dayVitamin D3 10 MCG (400 UNIT) Tablet as directed orally once a dayMagnesium Gluconate 250 MG Tablet 1 tab(s) orally 2 times a dayZinc TABLET , Notes: *Please review and pick correct strength-formulation from Whistlestopan options. If intended option is not shown, discontinue and re-order from Quick Search*Budesonide 1 MG/2ML Suspension 2 mL by nebulizer once a dayclonazePAM 1 MG Tablet 1 tab(s) orally 3 times a day, Notes: PRNHizentra 20% SOLUTION DIRECTED SUBCUTANEOUSLY ONCE A WEEK, Notes: *Please review and pick correct strength-formulation from Whistlestopan options. If intended option is not shown, discontinue and re-order from Quick Search*Levalbuterol HCl 0.31 MG/3 ML SOLUTION 3 ML BY NEBULIZER 3 TIMES A DAY, Notes: PRNMelatonin 2.5 MG Tablet Chewable 1 cap(s) orally once a day (at bedtime)Tylenol 325 MG Capsule 1 cap(s) orally 3 times a dayNexIUM 40 MG Capsule Delayed Release 1 cap(s) orally once a dayTaking Ryaltris 665-25 MCG/ACT Suspension 2 puffs in each nostril Nasally Twice a dayTaking Pascale 5 MG DELAYED RELEASE TABLET 1 TAB(S) ORALLY ONCE A DAY, Notes: PRNTaking Singulair 10 MG Tablet 1 tab(s) orally once a dayTaking Levothyroxine Sodium 125 MCG Tablet 1 tab(s) orally once a dayTaking Vitamin D3 10 MCG (400 UNIT) Tablet as directed orally once a dayTaking Magnesium Gluconate 250 MG Tablet 1 tab(s) orally 2 times a dayTaking Zinc TABLET , Notes: *Please review and pick correct strength- formulation from Cartagenia options. If intended option is not shown, discontinue and re-order from Quick Search*Taking Budesonide 1 MG/2ML Suspension 2 mL by nebulizer once a dayTaking clonazePAM 1 MG Tablet 1 tab(s) orally 3 times a day, Notes: PRNTaking Hizentra 20% SOLUTION DIRECTED SUBCUTANEOUSLY ONCE A WEEK, Notes: *Please review and pick correct strength-formulation from Cartagenia options. If intended option is not shown, discontinue and re-order from Quick Search*Taking Levalbuterol HCl 0.31 MG/3 ML SOLUTION 3 ML BY NEBULIZER 3 TIMES A DAY, Notes: PRNTaking Melatonin 2.5 MG Tablet Chewable 1 cap(s) orally once a day (at bedtime)Taking Tylenol 325 MG Capsule 1 cap(s) orally 3 times a dayTaking NexIUM 40 MG Capsule Delayed Release 1 cap(s) orally once a dayDiscontinuedFluticasone Propionate 50 MCG/ACT Suspension 1 spray(s) intranasally once a dayTurmeric 500 MG Capsule 1 cap(s) orally once a dayMedication List reviewed and reconciled with the patientDiscontinued Fluticasone Propionate 50 MCG/ACT Suspension 1 spray(s) intranasally once a dayDiscontinued Turmeric 500 MG Capsule 1 cap(s) orally once a dayMedication List reviewed and reconciled with the patient * Allergies:?HYDROcodone-Aceta minophen: anaphylaxisIodine: anaphylaxisDemerol: hivesLevaquin: dizzinessCefuroxime: rashcefTRIAXone: rashMoxifloxacin: hivesBactrim DSno[Allergies Verified] Objective: * Vitals:?Ht: 66, Wt: 81.19 kg , Wt - lbs: 179 lbs, Temp: 97.7, BP: 156/92, Pulse: 105, BMI:28.89. * Examination: ???Normal ENT Exam: ?General Appearance:?Able to communicate normally, NAD, pleasant.?Head/Face:?No Pathologic scars, lesions, or masses, normal salivary glands, good facial strength.?Oral Cavity?Lips, teeth, gums normal,Oropharynx & Posterior pharynx normal,IDL limited due to gag reflex.?Neck:?no mass, no adenopathy, no asymmetry, trachea midline, Thyroid normal.?Ear findings: ?External Ear:?EAC clear.?Middle Ear:?Normal tympanic membrane,bilaterally.?Nasal findings: ?Nasal dorsum:?midline.?Nasal Cavity:?Clear, Bilateral.?Septum:?midline.?Inferior turbinates:?normal pink.?Secretions:?clear rhinorrhea.?Nasopharyngeal findings:?limited examination.? Assessment: * Assessment: 1.?Eustachian Tube Dysfuncti on bilateral - H69.83 (Primary), Risk: Low? Plan: * Treatment: * Procedure Codes:? * Follow Up:?prn * Images: Billing Information: * Visit Code:? 71299 OV EST PT. * Procedure Codes:? * Sign off status: Completed true * Provider:?Yesenia Hawkins III, M.D. Da te:?07/19/2022 Generated for Griceli kerry/Neli/eTransmitting on:?01/06/2024 02:57 PM CDT History and Physical Notes * HPI (History of Present Illness) Category Sub-Category Detail Notes Ear Pain Location: bilateral Quality: aching Duration: About a week now Timing: continuous Modifying factors: Pt states she went t o her allergies and she told her her ear are filled with fluid Assoc signs /symptoms: ear fullness, ear pain, , tinnitus in the right ear, tonsil stones Examination Category Sub-Category Detail Notes Ear findings Middle Ear: Normal tympanic membrane,bilaterally External Ear: EAC clear Tube Status: ENT Exam General Appearance: Able to comm unicate normally, NAD, pleasant Head/Face: No Pathologic scars, lesions, or masses, normal salivary glands, good facial strength Oral Cavity Lips, teeth, gums no rmal,Oropharynx & Posterior pharynx normal,IDL limited due to gag reflex Neck: no mass, no adenopat hy, no asymmetry, trachea midline, Thyroid normal Nasal findings Septum: midline Inferior turbinates: normal pink Secretions: clear rhinorrhea Nasal dorsum: midline Nasopharyngeal findings: limited examina tion Nasal Cavity: Clear, Bilateral
--- OUTSIDE RECORDS SUMMARY | 2024-01-06 15:57 | XMS_ITS ---
Author Organization [facility] Address [address] [place] [address] Care Team Providers Care Medical Coding Technician Name Role Phone CHOCO SYLVESTER, [facility] Primary Care Provider Unavail able JORGITO RODRIGUEZ M.D., YESENIA Vogt JORGITO RODRIGUEZ M.D., YESENIA Vogt Unavaila ble REASON FOR VISIT Hearing Test, 07/21 Encounters Encounter Location Date Provider Diagnosis [facility] [address] [facility] [address] [place] [address] 07/21/2022 YESENIA BULL III Plan Of Treatment No Information Progress Notes * RIKKI DORSEYEDUARDOOB:1970 ( 52 yo F)Acc No.[id number]:07/21/2022 Patient:?LENIN DORSEY :1970???Age:52 Y???Sex:Female Address:[address], [facility] [address] * true * Date:? Generated for Printi ng/Faxing/eTransmitting on:?01/06/2024 02:57 PM CDT
--- OUTSIDE RECORDS SUMMARY | 2024-01-06 15:58 | XMS_ITS ---
Author Organization [facility] Address [address] [place], [place] [id number] Care Team Providers Care Wound Care Nurse Name Role Phone WOODY WILHELM Primary Care Provider RAMON Evans Unavailable [phone] REASON FOR VISIT Refills Encounters Encounter Location Date Provider Diagnosis [facility] [address] [place], [place] [phone] 05/28/2023 RAMON ALEX Plan Of Treatment No Information Progress Notes * RIKKI DORSEYEDUARDOOB:1970 ( 53 yo F)Acc No.[id number]:05/28/2023 Patient:?LENIN DORSEY :1970???Age:53 Y???Sex:Female Address:[address] [place], [address] * true * Date:? Generated for Printi kerry/Neli/eTransmitting on:?01/06/2024 02:57 PM CDT
--- OUTSIDE RECORDS SUMMARY | 2024-01-06 15:58 | XMS_ITS ---
Author Organization [facility] Address [address] [place], [place] [id number] Care Team Providers Care Australian Rules Footballer Name Role Phone WOODY WILHELM Primary Care Provider RAMON Evans Unavailable [phone] REASON FOR VISIT Hida scan results Encounters Encounter Location Date Provider Diagnosis [facility] [place] [address] [facility] [address] [place], [place] [phone] 05/22/2023 RAMON ALEX Plan Of Treatment No Information Progress Notes * RIKKI DORSEYEDUARDOOB:1970 ( 53 yo F)Acc No.[id number]:05/22/2023 Patient:?LENIN DORSEY :1970???Age:53 Y???Sex:Female Address:[address] [place], [address] * true * Date:? Generated for Griceli kerry/Neil/eTransmitting on:?01/06/2024 02:58 PM CDT
--- OUTSIDE RECORDS SUMMARY | 2024-01-06 15:58 | XMS_ITS ---
Author Organization [facility] Address [address] [place], [place] [phone] Care Team Providers Care Snuff Grinder And Screener Name Role Phone WOODY WILHELM Primary Care Provider RAMON Evans Unavailable [phone] Allergies Allergen (clinical drug ingredient) Drug/Non Drug Allergy documented on EMR Reaction Allergy Type Onset Date Status Z-Pack Unknown Drug Allergy Active Iodine Unknown Drug Allergy Active Levaquin Unknown Drug Allergy Active CIPRO Unknown Drug Allergy Active Vicodin Unknown Drug Allergy Active meperidine Demerol Unknown Drug Allergy Active Septra Unknown Drug Allergy Active Remsen nuts Unknown Drug Allergy Active REASON FOR VISIT 3 Week Follow Up - Results Medications Medication SIG (Take, Route, Frequency, Duration) Notes Start Date End Date Status sucralfate 1 g/10 mL 10 mL orally 4 time s a day (before meals and at bedtime) for 14 days 05/01/2023 Active metroNIDAZOLE 500 mg 1 tab(s) orally 3 t imes a day for 10 days 09/22/2022 Active Xifaxan 550 mg 1 tab(s) orally 3 ti mes a day for 14 days 04/30/2023 Active Xifaxan 550 mg 1 tab(s) orally 3 ti mes a day for 14 day(s) Active Mucinex Active budesonide Active melatonin Active Xopenex Active Levoxyl 125 mcg (0.125 mg) 1 tab(s) orally once a day Active Hizentra 20% subcutaneously once a week Active Singulair 10 mg 1 tab(s) orally once a day (in the evening) Active Flonase 50 mcg/inh 1 spray(s) intranasa lly once a day Active Dulera 5 mcg-200 mcg/inh 2 puff(s) inhal ed 2 times a day Active esomeprazole 20 mg 1 cap(s) orally once a day for 30 day(s) Active Problems Problem Type SNOMED Code ICD Code Onset Dates Problem Status W/U Status Risk Notes Problem 338644363 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 Encounters Encounter Location Date Provider Diagnosis [facility] [address] [place], [place] [phone] 06/08/2023 RAMON ALEX Pain of upper abdome n R10.10 ; 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.31 ; Bloating R14.0 and Gastroesophageal reflux disease, unspecified whether esophagitis present K21.9 Assessments Encounter Date Diagnosis (ICD Code) Assessment Notes Treat ment Notes Treatment Clinical Notes 06/08/2023 Pain of upper abdome n (ICD-10 - R10.10) 06/08/2023 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 (ICD-10 - E74.31) Will plan to start Sucraid 06/08/2023 Bloating (ICD-10 - R14.0) 06/08/2023 Gastroesophageal ref lux disease, unspecified whether esophagitis present (ICD-10 - K21.9) Plan Of Treatment Treatment Notes Assessment Notes Sucrose intolerance due to sucrase-isoma ltase deficiency Will plan to start Sucraid Next Appt Details Follow Up: 6 Weeks, Reason: Progress Notes * RIKKI DORSEYEDUARDOOB:1970 ( 53 yo F)Acc No.[id number]:06/08/2023 Progress Notes Patient:?LENIN DORSEY Provider:?RAMON ALEX MD :1970???Age:53 Y???Sex:Female D ate:06/08/2023 Address:[address] [facility] Pcp:WOODY WILHELM Subjective: * Chief Complaints: * ???1. 3 Week Follow Up - Res ults. * HPI: ???Acknowledgment:? Lenin is a 51 yo woman who is referred by [facility] for management of GERD. She also has iron deficiency anemia. ?Since 2018, Lenin has been having issues with HB, regurgitation, bloating. She's is on nexium and has been doing well on it. However, she will still experience regurgitation when she lays down at night. She's had a negative Ramires study in 2018, unclear if she took any meds during the study. She denies any dysphagia. ?Additionally, Lenin was recently diagnosed with severe iron deficiency with ferritin 5, % saturation 5. Hb was 11.2. A colonoscopy was done 1 month ago. She states that some polyps were removed, but othewise unrevealing. Her last EGD was 2 months ago, told she has a smal hiatal hernia; it was otherwise unremarkable. Ramires was not done during this EGD. She no longer has periods. ?Clinic visit 04/17/22: ?Doing much better actually. ?Has been on nexium BID, she wants to come down on it. We have not been able to perform her Ramires pH study due to issues with her schedule. ?Scheduled for repeat HIDA with Dr. Bingham. ?Still having intermittent loose stools. ?Clinic visit 08/09/22 ?Had recurrence of reflux symptoms, went back to prevacid 40mg twice daily. ?Has not been able to do Ramires yet. ?Clinic visit 09/22/22: ?Patient reports feeling unwell since after eating raw oysters. She states she developed diarrhea and abdominal pain all week. Stools are described as profuse watery stools. ?Of note, she was also recently on Augmentin for a UTI. ?Clinic visit 09/29/22 ?Diarrhea has completely resolved, but now her stool is pale. ?She's also been having increasing epigastric and RUQ pain. Its radiating to the back. ?She's on omeprazole 40mg BID and pepcid qhs which partially helps. ?Clinic visit 10/30/22: ?Symptoms ended up resolving itself so she never started xifaxin. ?Beginning 2 days ago, her abdominal pain has recurred. ?Clinic visit 12/29/22 ?Lenin is feeling much better. Some intermittent bloating, but thats it. ?Clinic visit 05/01/23: ?Recently had recurrence of symptoms about 1 week ago. ?Having a significant amount of reflux disease. Retrosternal burning and regurgitation. ?Also with epigastric pain, sometimes radiating to back. ?She went back prevacid 40mg twice daily without relief. ?No RUQ pain. ?She's having BMs, but not sure if she's fully evacuating. ?Clinic visit 05/18/23 ?EGD/EUS unremarkable. GEJ biopsies with esophagitis. ?She doesn't feel much better. ?She got her CDI breath test. Will also get sucrase test. ?Clinic visit 06/08/23 ?HIDA scan normal. ?Sucrase breath test came back with low activity. * ROS:?General:?no?decreased appetite.?no?fatigue/weakness.?no?fever/night sweats.?no?recent weight gain.?no?recent weight loss.?ENT/Respiratory:?no?chronic cough.?no?sore throat.?no?voice change.?no?wheezing.?Endocrinology:?no?excessive sweating.?no?excessive thirst.?no?fatigue.?no?hair loss.?no?heat or cold intolerance.?Cardiology:?Patient denies?chest pain, dizziness, palpitations, shortness of breath,swelling of ankles.?Hematological:?no?bleeding.?no?past transfusion.?Musculoskeletal:?no?joint pain.?Dermatology:?no?itching.?no?rash.?Neurology:?no?lightheaded/dizziness.? * Medical History:?GERD, Pancr eatitis 20 yrs ago, hypothyroid, HTN, 11/28/13 EGD/EUS-EGD with mild non-erosive gastritis found in the antrum.Three biopsies taken for H.pylori.Normal EUS of esophagus,stomach,duodenum,biliary system,gallbladder and pancreas.No pancreas mass,chronic pancreatitis or cyst/pseudocyst., 02/19/18 EGD-Normal EGD with exception of mild non-erosive antral gastritis,biopsied. Normal GEJ @ 39cm, esophageal biopsy @33cm for evaluation of dysphagia., 02/19/18 EGD path: Stomach Biopsy-Chemical reactive gastropathy. Parietal cell hyperplasia. Negative for H.pylroi. Esophagus @ 33cm Biopsy-Squamous esophageal mucosa with reactive changes.. * Surgical History:?Colonoscop y , , Broken Nose . * Hospitalization/Major Diagno stic Procedure:?Denies Past Hospitalization. * Family History:?Mother: kamla farnsworth.?Father: alive, diagnosed with Essential hypertension.?Paternal Grand Father: , diagnosed with Cancer.?Paternal Grand Mother: , diagnosed with Cancer.?Maternal Grand Father: .?Maternal Grand Mother: , Parkinson's.?Siblings: alive.?Children: alive.?Non-Contributory.? No known family Hx of colon cancer. * Medications:?Taking esomepra zole 20 mg delayed release capsule 1 cap(s) orally once a day , Taking Dulera 5 mcg-200 mcg/inh aerosol 2 puff(s) inhaled 2 times a day , Taking Singulair 10 mg tablet 1 tab(s) orally once a day (in the evening) , Taking Flonase 50 mcg/inh spray 1 spray(s) intranasally once a day , Taking Levoxyl 125 mcg (0.125 mg) tablet 1 tab(s) orally once a day , Taking Hizentra 20% solution subcutaneously once a week , Taking melatonin , Taking Xopenex , Taking budesonide , Taking Mucinex , Taking Xifaxan 550 mg tablet 1 tab(s) orally 3 times a day , Taking metroNIDAZOLE 500 mg tablet 1 tab(s) orally 3 times a day , Taking Xifaxan 550 mg tablet 1 tab(s) orally 3 times a day , Taking sucralfate 1 g/10 mL suspension 10 mL orally 4 times a day (before meals and at bedtime) * Allergies:?Vicodin, Demerol, Iodine, Septra, Levaquin, CIPRO, Z-Pack, Remsen nuts. Objective: * Examination: ???General examination: ?General appearance:?no acute distress, pleasant.?HEENT:?unremarkable.?Neck:?supple.?Chest:?Symmetrical.?Lungs:?clear bilaterally.?Heart:?no murmurs, regular rate and rhythm, normal S1S2.?Skin:?dry, warm.?Abdomen:?soft, non-distended, non-tender, no guarding or rebound, no masses.?Extremities:?no clubbing, no edema.? Assessment: * Assessment: 1.?Sucrose intolerance due t o sucrase-isomaltase deficiency - E74.31 (Primary)?2.?Pain of upper abdomen - R10.10?3.?Bloating - R14.0?4.?Gastroesophageal reflux disease, unspecified whether esophagitis present - K21.9? Plan: * Treatment: * Follow Up:?6 Weeks * * SURANCE ANALYST Sign off status: Completed true * Provider:?RAMON ALEX MD Date:?06/08 Generated for Dannielle payne/Neli/Rafiitting on:?01/06/2024 02:57 PM CDT History and Physical Notes * Examination Category Sub-Category Detail Notes General examination HEENT: unremarkable Neck: supple Heart: no murmurs, regular rate and rhythm, normal S1S2 Lungs: clear bilaterally Abdomen: soft, non-distended, non-tender, no guarding or rebound, no masses Extremities: no clubbing, no grecia a General appearance: no acute distress, p leasant Skin: dry, warm Chest: Symmetrical
--- OUTSIDE RECORDS SUMMARY | 2024-01-06 15:59 | XMS_ITS | Patient Health Record ---
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 Name Role Phone WOODY WILHELM Primary Care Provider RAMON Evans Unavailable [phone] Allergies Allergen (clinical drug ingredient) Drug/Non Drug Allergy documented on EMR Reaction Allergy Type Onset Date Status Z-Pack Unknown Drug Allergy Active Iodine Unknown Drug Allergy Active Levaquin Unknown Drug Allergy Active CIPRO Unknown Drug Allergy Active Vicodin Unknown Drug Allergy Active meperidine Demerol Unknown Drug Allergy Active Septra Unknown Drug Allergy Active Jenkins nuts Unknown Drug Allergy Active Reason For Referral No Information Medications Medication SIG (Take, Route, Frequency, Duration) Notes Start Date End Date Status Singulair 10 mg 1 tab(s) orally once a day (in the evening) Active sucralfate 1 g/10 mL 10 mL orally 4 time s a day (before meals and at bedtime) for 14 days 05/01/2023 Active Flonase 50 mcg/inh 1 spray(s) intranasa lly once a day Active metroNIDAZOLE 500 mg 1 tab(s) orally 3 t imes a day for 10 days 09/22/2022 Active Dulera 5 mcg-200 mcg/inh 2 puff(s) inhal ed 2 times a day Active Xifaxan 550 mg 1 tab(s) orally 3 ti mes a day for 14 days 04/30/2023 Active Xifaxan 550 mg 1 tab(s) orally 3 ti mes a day for 14 day(s) Active esomeprazole 20 mg 1 cap(s) orally once a day for 30 day(s) Active budesonide Active Mucinex Active melatonin Active Xopenex Active Levoxyl 125 mcg (0.125 mg) 1 tab(s) orally once a day Active Hizentra 20% subcutaneously once a week Active Social History Tobacco Use: Social History Observation Description Date Details (start date - stop date) Never Smoker NA - NA Smoking Question Answer Notes Status Never Smoker Problems Problem Type SNOMED Code ICD Code Onset Dates Problem Status W/U Status Risk Notes Problem Morbid obesity (977466931) MORBID OBESITY (278.01) Active confirmed Problem Acute pancreatitis (165654290) ACUTE PANCREATITIS (577.0) Active confirmed Problem Liver enzymes abnormal (649697851) Abnormal Liver Enzymes (794.8) Active confirmed Problem Epigastric pain (36664906) ABDMNAL PAIN EPIGASTRIC (789.06) Active confirmed Problem 250602277 Blood in stool (K92.1) Active confirmed Problem 646706208 History of colonic polyps (Z86.010) Active confirmed Problem 288225785 Irritable bowel syndrome with diarrhea (K58.0) Active confirmed Problem Disorder of biliary tract (764930938) Other specified diseases of biliary tract (K83.8) Active confirmed Problem 882706851 Encounter for screening for malignant neoplasm of colon (Z12.11) Active confirmed Problem 606626102 Iron deficiency anemia due to chronic blood loss (D50.0) Active confirmed EGD 2 months ago and colonoscopy 1 month ago were reportedly unrevealing for source of anemia. VCE with me was normal. She does not menstruate, so this is not the cause. 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 Unclear of the quality of the study. She was due to repeat a Zimmerman study this week at [facility], but this was canceled for some reason. I tried scheduling, but this has not been done yet. Symptoms seem to now be doing well on max dose PPI. Vital Signs Blood pressure diastolic 94 mm Hg 05/18/2023 Height 66 in 05/18/2023 Blood pressure systolic 139 mm Hg 05/18/2023 Weight 185 lbs 05/18/2023 BMI 29.86 05/18/2023 Procedures Procedure Date Ordered Date Performed Result Body Sit e EGD 05/01/2023 N/A Encounters Encounter Location Date Provider Diagnosis [facility] [address], [place] [id number] 05/07/2023 [facility] [address] [place] [id number] 05/01/2023 RAMON ALEX Pain of upper abdome n R10.10 ; Bloating R14.0 and Gastroesophageal reflux disease, unspecified whether esophagitis present K21.9 [facility] [address] [place] [address] [id number] 05/18/2023 RAMON ALEX Pain of upper abdome n R10.10 ; Bloating R14.0 and Gastroesophageal reflux disease, unspecified whether esophagitis present K21.9 [facility] [address] [place] [id number] 06/08/2023 RAMON ALEX Pain of upper abdome n R10.10 ; 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.31 ; Bloating R14.0 and Gastroesophageal reflux disease, unspecified whether esophagitis present K21.9 [facility] [address] [place] [id number] [facility]/07[facility] [address] [place] [id number] 05/15/2023 RAMON [facility] [address] [place] [address] [id number] 05/28/2023 RAMON [facility] [address] [place] [address] [id number] 04/30/20[facility] [address] [place], [place] [id number] 05/07/2023 RAMON ALEX [facility] [address] [place] [id number] 05/10/2023 RAMON ALEX [facility] [address] [place] [address] [id number] 05/22/2023 RAMON ALEX Assessments Encounter Date Diagnosis (ICD Code) Assessment Notes Treat ment Notes Treatment Clinical Notes 05/01/2023 Pain of upper abdome n (ICD-10 - R10.10) Upper abdominal pain radiating to the back. Concern for pancreas pathology. Will plan for EGD with EUS of pancreas. Also ordering CT a/p Starting carafate Continue PPI BID 05/18/2023 Pain of upper abdome n (ICD-10 - R10.10) Upper abdominal pain radiating to the back. Concern for pancreas pathology. Will plan for CDI breath test, sucrase breath test. 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 (ICD-10 - E74.31) Will plan to start Sucraid 06/08/2023 Bloating (ICD-10 - R14.0) 05/18/2023 Bloating (ICD-10 - R14.0) 05/01/2023 Bloating (ICD-10 - R14.0) 05/01/2023 Gastroesophageal ref lux disease, unspecified whether esophagitis present (ICD-10 - K21.9) 06/08/2023 Gastroesophageal ref lux disease, unspecified whether esophagitis present (ICD-10 - K21.9) 05/18/2023 Gastroesophageal ref lux disease, unspecified whether esophagitis present (ICD-10 - K21.9) Plan Of Treatment Pending Test Test Name Order Date HIDA Scan 05/18/2023 Gastric Emptying Scan 05/18/2023 Triglycerides serum 11/06/2013 CBC WITH NO DIFF 11/06/2013 CMP w/ eGFR (Comprehensive metabolic [place]zano el w/eGFR) 11/06/2013 CMP w/ eGFR (Comprehensive metabolic [place] el w/eGFR) 12/04/2013 Lipase level 11/06/2013 US abd 09/29/2022 Colonoscopy 11/01/2020 EGD 02/12/2018 EGD 09/29/2022 EGD 05/01/2023 ENDOSCOPIC ULTRASOUND EXAM 11/06/2013 CAPSULE ENDOSCOPY READING & INTERPRETATI ON 03/06/2022 EUS 05/01/2023 CT Abd and Pelvis W/O 05/01/2023 CT Abd and Pelvis W/O 09/29/2022 QDx Pathology 11 Target Stool Panel plus Cyclospora 09/22/2022 EGD w/ 4 day ZIMMERMAN (off meds) 03/06/2022 Sucrose Breath Test 05/18/2023 CBC (INCLUDES DIFF/PLT) (REFL) (18934) 0 09/29/2022 Insurance Providers Payer Name Payer Address Payer Phone Subscriber Number Group Number Insured Name Patient Relationship to Insured Coverage Start Date Coverage End Date [employer] - GOLD POS 2 [address] [address] [place] [address] [id number] [facility] ANNIA DORSEY Spouse - patient is the spouse of the insured Medical (General) History Medical History History ICD Code GERD pancreatitis 20 yrs ago hypothyroid, HTN 11/28/13 EGD/EUS-EGD with mi ld non-erosive gastritis found in the antrum.Three biopsies taken for H.pylori.Normal EUS of esophagus,stomach,duodenum,biliary system,gallbladder and pancreas.No pancreas mass,chronic pancreatitis or cyst/pseudocyst. 02/19/18 EGD-Normal EGD with exception of mild non-erosive antral gastritis,biopsied. Normal GEJ @ 39cm, esophageal biopsy @33cm for evaluation of dysphagia. 02/19/18 EGD path: Stomach B iopsy-Chemical reactive gastropathy. Parietal cell hyperplasia. Negative for H.pylroi. Esophagus @ 33cm Biopsy-Squamous esophageal mucosa with reactive changes. Surgical History Surgery Date(Month/Year) Colonoscopy Broken Nose
[2024-01-06] MEDS: ondansetron HCL 4 MG/2 ML VIAL IVPUSH (17:52)
[2024-01-06 18:05] VITALS: BP 112/75; PULSE 81; RESP 16; TEMP 36.8; O2SAT 97
== END 2024-01-06 18:06 | disposition home or self-care (01) ==
PROVIDERS: Physician Assistant; Emergency Provider Emergency Medicine
DX: K57.32 Diverticulitis of large intestine without perforation or abscess without bleeding (principal); R10.2 Pelvic and perineal pain; R10.12 Left upper quadrant pain; R19.7 Diarrhea, unspecified; R11.0 Nausea; Z79.899 Other long term (current) drug therapy
CPT/HCPCS: 36415; 74176; 80053; 81001; 83690; 84484; 84702; 85025; 85610; 85730; 87086; 93005; 96360; 96374; 96376; 99284; J2405

== ENCOUNTER → 2024-01-06 14:42 | Outpatient (BNV) | payer OTHER, SELFPAY | PROVIDERS: Emergency Provider Emergency Medicine; Visit Provider Internal Medicine Cardiovascular Disease | DX: R10.9 Unspecified abdominal pain (principal) | CPT/HCPCS: 93010 ==